=== PATIENT | male | born 1975 | race Caucasian/White ===

== ENCOUNTER 2021-07-10 18:34 | Emergency (ER) | payer OTHER ==
[~2021-07-10] VITALS: Ht 170.2 cm; Wt 81.7 kg
--- NOTE | ~2021-07-10 | EMS ---
[facility] [address] [place] [address] EMS Patient Care Report Name: OSMIN BERRIOS Room #: DEP DEISY Fierro#: [id number] Admission: 07/10/21 Attend Phys: Discharge: 07/11/21 Date of : 79 Report #: [id number] THIS REPORT FOR: //name// Report Transmitted: 07/13/2021 10:20 EMS Care Summary [place], [place]/[facility] Incident [phone] @ 07/10/2021 18:02 Incident Location [id number] [place] [id number] Patient UNKNOWN UNKNOWN Male, Patient Address UNKNOWN Chief Complaint AMS Disposition Transported No Lights/[place] Dispatch Reason Unknown Problem/Person Down Transported To [facility] Narrative PT FOUND LYING SUPINE ON GROUND NEXT TO GROCERY STORE. PD AND P42 ON SCENE. PT IS WELL KNOWN TO EMS FOR ETOH USE. PT SMELLS OF ETOH. PT HAS MULTIPLE ETOH BOTTLES NEXT TO HIM. PT UNABLE TO ANSWER ANY EMS QUESTIONS CORRECLTY. PT HAS NO VISIBLE TRAUMA. NO CHANGES NOTED ENROUTE. Initial Vitals @18:17P: 91,R: 6,BP: 141/82,Pain: 0/10,GCS: 11,Glucose: 102,CO: 4,SpO2: 92,Revised Trauma: 9, Assessments @18:14MENTAL:Confused,SKIN:No Abnormalities,HEENT:Head/Face: No Abnormalities,LUNG SOUNDS:General: No Abnormalities,ABDOMEN:General: No [facility] [address] [place] [address] EMS Patient Care Report Name: OSMIN BERRIOS Room #: DEP Vadim#: [id number] Admission: 07/10/21 Attend Phys: Discharge: 07/11/21 Date of : 79 Report #: [id number] Abnormalities,PELVIS//GI:No Abnormalities,EXTREMITIES:PULSE:NEURO:Slurred Speech, Impression Overdose - Alcohol Procedures @18:14ALS AssessmentResponse: UnchangedSucceeded@18:15StretcherResponse: Unchanged Timeline 18:01,Call Received 18:01,Dispatch Notified 18:02,Dispatched 18:03,En Route 18:13,On Scene 18:14,At Patient 18:14,ALS Assessment,Response: UnchangedSucceeded, 18:15,Stretcher,Response: Unchanged 18:17,BP: 141/82 M,PULSE: 91,RR: 6 R,SPO2: 92 Ox,ETCO2: ,B,PAIN: 0,GCS: 11, 18:20,Depart Scene 18:28,At Destination 18:37,Call Closed Disclaimer v1.1 Copyright 2020 [email or web address] This EMS Care Summary contains data elements from the applicable legal record (which may be displayed differently). It is designed to provide pertinent information for the following purposes: continuity of care, clinical quality, and state data reporting. The complete legal record is available to ED staff and administrators of the receiving hospital in [facility]'s Patient Tracker. All data is provided "as is."
[2021-07-10 18:56] LABS: HEMATOCRIT 41.7 % (42.0-52.0); HEMOGLOBIN 14.1 gm/dL (14.0-18.0); MCH 30.7 pg (26.0-34.0); MCHC 33.8 g/dL (28.0-37.0); MCV 90.9 fL (80.0-100.0); RBC 4.58 mil/uL (4.50-6.00); RDW 15.2 % (10.5-14.5); WBC 6.3 thou/uL (4.0-11.0)
[2021-07-10 19:15] LABS: CALCIUM 8.3 mg/dL (8.5-10.1); CREATININE 0.6 mg/dL (0.7-1.3); POTASSIUM 3.4 mmol/L (3.5-5.1)
[2021-07-10 19:20] LABS: ALBUMIN 3.9 g/dL (3.4-5.0); TOTAL BILIRUBIN 0.6 mg/dL (0.2-1.0)
[2021-07-11 05:53] VITALS: BP 128/65
--- NOTE | 2021-07-11 11:26 | EKG ---
[address] [address] ELECTROCARDIOGRAM REPORT Name: JEAN PIERRE BERRIOSO [id number] Admission: 07/10/21 Attend Phys: Discharge: 07/11/21 Date of : 79 Report #: [id number] [facility] ED Test Date: 2021-07-10 Test Time: 18:44:11 Pat Name: OSMIN BERRIOS Department: Room: Gender: [employer] Tender: IG : 1975 Requested By: Trisha oWlff Order Number: [id number] MD: Jaspal Mcallister Measurements Intervals [place] Rate: 93 P: 60 WI: 167 QRS: 20 QRSD: 83 T: 28 QT: 387 QTc: 482 Interpretive Statements Sinus rhythm Borderline prolonged QT interval No previous ECG available for comparison Electronically Signed On 07-11-2021 11:26:31 CDT by Jaspal Mcallister [email or web address] <ELECTRONICALLY SIGNED> By: Jaspal Mcallister MD, [facility] 07/11/21 [id number] Jaspal Mcallister MD, FACC /EPI
== END 2021-07-11 05:34 | disposition home or self-care (01) ==
LOC: EDBD 18:34 → ER 18:34
PROVIDERS: Nurse Practitioner Family
DX: F10.129 Alcohol abuse with intoxication, unspecified (principal); Y90.9 Presence of alcohol in blood, level not specified